=== PATIENT | female | born 1960 | race Caucasian/White ===

== ENCOUNTER → 2019-09-06 | Outpatient (REF) | payer OTHER | LOC: M SFHCPLAZ 11:41 | PROVIDERS: ATTEND Physician Assistant Medical | DX: J06.9 Acute upper respiratory infection, unspecified (principal) ==

== ENCOUNTER → 2020-11-13 | Outpatient (CLI) | payer SELFPAY | LOC: M LABSMTC 11:43 | PROVIDERS: ATTEND Pediatrics | DX: Z11.52 Encounter for screening for COVID-19 (principal) ==

== ENCOUNTER → 2021-01-07 | Outpatient (CLI) | payer BC, OTHER ==
--- NOTE | 2021-01-07 12:20 | REP ---
INDICATION: LT BREAST CALCIFICATIONS,STEREOTACIC BIOPSY. Two targets bracketing a large regional grouping of microcalcifications. COMPARISON: Comparison mammography December 18, 2020.. TECHNIQUE: Two views. FINDINGS: Specimen radiography demonstrates multiple microcalcifications from the target grouping in both sets of removed specimens. There are microcalcifications in almost all of the removed specimens. IMPRESSION: Microcalcifications are visible in the removed specimens from the target grouping. <Electronically signed by Husam Morrison > 01/07/21 [id number]
--- NOTE | 2021-01-07 12:21 | REP ---
INDICATION: LT BREAST CALCIFICATIONS,POST STEREOTACIC BIOPSY. Marker clip placement views. COMPARISON: Comparison mammography December 18, 2020. TECHNIQUE: Craniocaudal and mediolateral views of the left breast are obtained. This mammogram was interpreted with the aid of an FDA-approved computer-aided detection system. FINDINGS: Craniocaudal and mediolateral views of the left breast demonstrate that 2 marker clips have been placed 1 along the posterior aspect in the other lung the anterior aspect of the regional distribution of microcalcifications. These clips are noted to be in good position. A small hematoma is noted adjacent to the more anterior clip and repeat breast compression was performed. IMPRESSION: Both needle biopsy marker clips appear in good position in the left breast. <Electronically signed by Husam Morrison > 01/07/21 [id number]
[2021-01-07 12:30] VITALS: BP 130/68
--- NOTE | 2021-01-07 15:27 | REP ---
INDICATION: LT BREAST CALCIFICATIONS,STEREOTACTIC BIOPSY. COMPARISON: None. TECHNIQUE: The procedure was performed under the direct supervision of Dr. Morrison. 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 The risks and benefits of the procedure were explained to the patient and informed consent was obtained. Two sites of calcifications were targeted for biopsy. A cluster of calcifications in the more posterior region were addressed 1st. A craniocaudal approach was utilized. The calcifications were localized using stereotactic mammographic guidance. 1% Xylocaine was used as a local anesthetic. An 10 gauge, suction assisted Mammotome needle was inserted and 6 core biopsy samples were obtained. Specimen radiograph demonstrates the presence of calcifications to be within the specimen. A marker clip (HydroMARK shape 1) was placed at the biopsy site. A cluster of calcifications in the more anterior region were then addressed. A craniocaudal approach was utilized. The calcifications were localized using stereotactic mammographic guidance. 1% Xylocaine was used as a local anesthetic. An 10 gauge, suction assisted Mammotome needle was inserted and 6 core biopsy samples were obtained. Specimen radiograph demonstrates the presence of calcifications to be within the specimen. A marker clip (HydroMARK shape 3) was placed at the biopsy site. The patient tolerated the procedure well and there were no immediate complications. After the appropriate amount of monitored convalescence, the patient was discharged from the department. FINDINGS: None IMPRESSION: Stereotactic left breast biopsy with marker clip placement. A HydroMARK shape 1 was placed in the more posterior biopsy site and a HydroMARK shape 3 was placed in the more anterior biopsy site. <Electronically signed by Blair Light > 01/07/21 1513 <Electronically signed by Husam Morrison > 01/07/21 1524
== END ==
LOC: M WHCPRO 10:17
PROVIDERS: ATTEND Family Medicine
DX: D05.12 Intraductal carcinoma in situ of left breast (principal); R92.1 Mammographic calcification found on diagnostic imaging of breast

== ENCOUNTER → 2021-05-14 | Outpatient (CLI) | payer OTHER | LOC: M LABSMTC 09:36 | PROVIDERS: ATTEND Surgery | DX: Z01.812 Encounter for preprocedural laboratory examination (principal) ==

== ENCOUNTER → 2022-05-12 | Outpatient (CLI) | payer OTHER | LOC: M PLAIMG 09:47 | PROVIDERS: ATTEND Physician Assistant | DX: M26.629 Arthralgia of temporomandibular joint, unspecified side (principal); R68.84 Jaw pain | CPT/HCPCS: 70330; G0463 ==

== ENCOUNTER → 2022-05-15 | Outpatient (CLI) | payer OTHER | LOC: M WHC 07:19 | PROVIDERS: ATTEND Family Medicine | DX: M85.851 Other specified disorders of bone density and structure, right thigh (principal); M85.852 Other specified disorders of bone density and structure, left thigh ==

== ENCOUNTER → 2022-05-18 | Outpatient (CLI) | payer OTHER ==
[2022-05-18 10:25] LABS: BASO # 0.1 10^3/uL (0.0-0.2); BASO % 0.9 % (0.0-1.0); EOS # 0.2 10^3/uL (0.0-0.5); EOS % 2.3 % (0.0-3.0); HEMATOCRIT 40.5 % (36.0-47.0); HEMOGLOBIN 13.8 g/dl (12.0-15.5); LYMPH # 2.2 10^3/uL (1.5-5.0); LYMPH % 28.9 % (24.0-44.0); MEAN CORPUSCULAR HEMOGLOBIN 29.9 pg (27.0-33.0); MEAN CORPUSCULAR HGB CONC 34.1 g/dl (32.0-36.5); MEAN CORPUSCULAR VOLUME 87.7 fl (80.0-96.0); MONO # 0.6 10^3/uL (0.0-0.8); MONO % 7.8 % (2.0-8.0); NEUTROPHILS # 4.5 10^3/uL (1.5-8.5); NEUTROPHILS % 59.7 % (36.0-66.0); PLATELET COUNT, AUTOMATED 292 10^3/uL (150-450); RED BLOOD COUNT 4.62 10^6/uL (4.00-5.40); WHITE BLOOD COUNT 7.5 10^3/uL (4.0-10.0)
[2022-05-18 11:02] LABS: ALBUMIN 3.5 GM/DL (3.2-5.2); ALT/SGPT 37 U/L (12-78); BILIRUBIN,TOTAL 0.5 MG/DL (0.2-1.0); BLOOD UREA NITROGEN 11 MG/DL (7-18); CALCIUM LEVEL 9.1 MG/DL (8.8-10.2); CARBON DIOXIDE LEVEL 23 MEQ/L (21-32); CHLORIDE LEVEL 111 MEQ/L (98-107); CHOLESTEROL LEVEL 198 MG/DL (<200); CHOLESTEROL RISK RATIO 5.351 (<5); FERRITIN 32 NG/ML (8-252); FREE T4 0.95 NG/DL (0.76-1.46); GLOMERULAR FILTRATION RATE > 60.0 (>45); GLUCOSE, FASTING 96 MG/DL (70-100); HDL CHOLESTEROL 37 MG/DL (>40); LDL CHOLESTEROL 132 MG/DL (<100); NON-HDL-C 161 MG/DL; POTASSIUM SERUM 4.3 MEQ/L (3.5-5.1); SODIUM LEVEL 141 MEQ/L (136-145); TOTAL PROTEIN 7.4 GM/DL (6.4-8.2); TRIGLYCERIDES LEVEL 146 MG/DL (<150)
[2022-05-18 11:15] LABS: HEMOGLOBIN A1c 4.7 %
[2022-05-18 12:11] LABS: PTH INTACT 68.4 PG/ML (18.5-88.0); TOTAL 25(OH) VITAMIN D 37.7 NG/ML (30.0-100.0)
== END ==
LOC: M PLALAB 07:05
PROVIDERS: ATTEND Family Medicine
DX: E78.5 Hyperlipidemia, unspecified (principal); M85.80 Other specified disorders of bone density and structure, unspecified site

== ENCOUNTER → 2022-07-27 | Outpatient (REF) | payer OTHER | LOC: M SFHCPLAZ 17:31 | PROVIDERS: ATTEND Physician Assistant | DX: R05.1 Acute cough (principal) ==

== ENCOUNTER → 2022-07-28 | Outpatient (CLI) | payer OTHER | LOC: M PLALAB 15:47 | PROVIDERS: ATTEND Physician Assistant | DX: R05.3 Chronic cough (principal) ==

== ENCOUNTER 2023-03-01 08:14 | Day surgery (SDC) | payer OTHER ==
[~2023-03-01] VITALS: Ht 157.5 cm; Wt 70.8 kg
[~2023-03-01 08:14] MED LIST: LIDOCAINE 2% 100MG/5ML SDV (FOR ANES.) As Ordered ONE; NS 1,000 ML IV ONE; propofoL 200 MG/20 ML VIAL As Ordered ONE
[2023-03-01 09:41] VITALS: BP 159/93
== END 2023-03-01 09:40 | disposition home or self-care (01) ==
LOC: M OPP 08:14
PROVIDERS: ATTEND Internal Medicine Gastroenterology
DX: Z12.11 Encounter for screening for malignant neoplasm of colon (principal); K64.1 Second degree hemorrhoids; K64.4 Residual hemorrhoidal skin tags; Z88.0 Allergy status to penicillin; Z88.1 Allergy status to other antibiotic agents; Z88.8 Allergy status to other drugs, medicaments and biological substances; Z91.030 Bee allergy status

== ENCOUNTER → 2024-05-29 | Outpatient (CLI) | payer OTHER ==
[~2024-05-29] MED LIST changes: -LIDOCAINE 2% 100MG/5ML SDV (FOR ANES.) As Ordered ONE; -NS 1,000 ML IV ONE; +PROHANCE 279.3MG/ML 15ML VIAL ONE; -propofoL 200 MG/20 ML VIAL As Ordered ONE
== END ==
LOC: M PLAIMG 10:18
PROVIDERS: ATTEND Nurse Practitioner Family
DX: D05.12 Intraductal carcinoma in situ of left breast (principal)

== ENCOUNTER → 2025-02-02 | Outpatient (REF) | payer OTHER ==
[2025-02-02 10:48] LABS: BASO # 0.1 10^3/uL (0.0-0.2); BASO % 0.6 % (0.0-1.0); EOS # 0.2 10^3/uL (0.0-0.5); EOS % 2.2 % (0.0-3.0); HEMATOCRIT 43.8 % (36.0-47.0); HEMOGLOBIN 14.7 g/dl (12.0-15.5); LYMPH # 2.8 10^3/uL (1.5-5.0); MEAN CORPUSCULAR HEMOGLOBIN 29.1 pg (27.0-33.0); MEAN CORPUSCULAR HGB CONC 33.6 g/dl (32.0-36.5); MEAN CORPUSCULAR VOLUME 86.7 fl (80.0-96.0); MONO # 0.7 10^3/uL (0.0-0.8); MONO % 7.2 % (2.0-8.0); NEUTROPHILS # 5.6 10^3/uL (1.5-8.5); NEUTROPHILS % 59.6 % (36.0-66.0); PLATELET COUNT, AUTOMATED 330 10^3/uL (150-450); RED BLOOD COUNT 5.05 10^6/uL (4.00-5.40); WHITE BLOOD COUNT 9.3 10^3/uL (4.0-10.0)
[2025-02-02 11:14] LABS: CHOLESTEROL RISK RATIO 5.27 (<5); HDL CHOLESTEROL 41.5 MG/DL (>40); LDL CHOLESTEROL 155.1 MG/DL (<100); NON-HDL-C 177.5 MG/DL
[2025-02-02 11:15] LABS: PTH INTACT 48.8 PG/ML (18.5-88.0)
[2025-02-02 11:16] LABS: FERRITIN 65.7 NG/ML (7.3-270.7); FREE T4 1.38 NG/DL (0.89-1.76)
[2025-02-02 11:17] LABS: THYROID STIMULATING HORMONE 2.047 uIU/ML (0.55-4.78); TOTAL 25(OH) VITAMIN D 39.6 NG/ML (20.0-100.0)
== END ==
LOC: M SFHCPLAZ 09:46
PROVIDERS: ATTEND Family Medicine
DX: E55.9 Vitamin D deficiency, unspecified (principal); M85.80 Other specified disorders of bone density and structure, unspecified site; E78.5 Hyperlipidemia, unspecified; Z12.11 Encounter for screening for malignant neoplasm of colon

== ENCOUNTER → 2025-03-19 | Outpatient (CLI) | payer MEDICARE, OTHER | LOC: M WHC 07:56 | PROVIDERS: ATTEND Family Medicine | DX: Z12.31 Encounter for screening mammogram for malignant neoplasm of breast (principal); M81.0 Age-related osteoporosis without current pathological fracture; N64.9 Disorder of breast, unspecified | CPT/HCPCS: 77067; 77080; G0279 ==

== ENCOUNTER → 2025-09-03 | Outpatient (CLI) | payer MEDICARE, OTHER ==
[2025-09-03 11:30] LABS: BASO # 0.1 10^3/uL (0.0-0.2); BASO % 0.6 % (0.0-1.0); EOS # 0.1 10^3/uL (0.0-0.5); EOS % 1.6 % (0.0-3.0); LYMPH # 2.5 10^3/uL (1.5-5.0); LYMPH % 30.8 % (24.0-44.0); MONO # 0.5 10^3/uL (0.0-0.8); MONO % 6.7 % (2.0-8.0); NEUTROPHILS # 4.9 10^3/uL (1.5-8.5); NEUTROPHILS % 59.9 % (36.0-66.0); PLATELET COUNT, AUTOMATED 338 10^3/uL (150-450)
[2025-09-03 11:56] LABS: ALT/SGPT 27.0 U/L (7.0-40); AST/SGOT 20.0 U/L (<34); CALCIUM LEVEL 9.9 MG/DL (8.3-10.6); CARBON DIOXIDE LEVEL 28.0 MMOL/L (20-31); CHLORIDE LEVEL 101.0 MMOL/L (98-107); CHOLESTEROL LEVEL 196.0 MG/DL (<200); CHOLESTEROL RISK RATIO 4.17 (<5); CREATININE FOR GFR 0.75 MG/DL (0.55-1.30); GLOMERULAR FILTRATION RATE 88.3 (>45); LDL CHOLESTEROL 131.7 MG/DL (<100); NON-HDL-C 149.1 MG/DL; POTASSIUM SERUM 4.8 MMOL/L (3.5-5.1); SODIUM LEVEL 138.0 MMOL/L (136-145); TRIGLYCERIDES LEVEL 87.0 MG/DL (<150)
[2025-09-03 11:59] LABS: PTH INTACT 34.8 PG/ML (18.5-88.0)
[2025-09-03 12:02] LABS: TOTAL 25(OH) VITAMIN D 44.6 NG/ML (20.0-100.0)
[2025-09-03 12:03] LABS: VITAMIN B12 LEVEL 389.0 PG/ML (211-911)
== END ==
LOC: M PLALAB 08:35
PROVIDERS: ATTEND Family Medicine
DX: D50.9 Iron deficiency anemia, unspecified (principal); E55.9 Vitamin D deficiency, unspecified; E78.5 Hyperlipidemia, unspecified; D05.12 Intraductal carcinoma in situ of left breast